=== PATIENT | female | born 1960 | race Caucasian/White ===

== ENCOUNTER 2021-05-08 00:37 | Emergency (ER) | payer BC ==
[~2021-05-08] VITALS: Ht 152.4 cm; Wt 64.9 kg
[2021-05-08] MEDS ORDERED: SODIUM CHLORIDE 0.9% 1,000 ML IV ONE (01:15)
[2021-05-08] MEDS ORDERED: KETOROLAC 30MG/ML VIAL IV STA (01:15)
[2021-05-08] MEDS ORDERED: ONDANSETRON HCL 4MG/2ML INJ IV STA (01:15)
[2021-05-08 01:41] LABS: CLARITY URINE CLOUDY (CLEAR); COLOR URINE YELLOW (YELLOW); KETONES URINE NEGATIVE (NEGATIVE); LEUKOCYTE ESTERASE URINE TRACE (NEGATIVE); NITRITE URINE NEGATIVE (NEGATIVE); OCCULT BLOOD URINE 2+ (NEGATIVE); PROTEIN URINE 1+ (NEGATIVE); SPECIFIC GRAVITY URINE 1.029 (1.005-1.030); UROBILINOGEN URINE 0.2 E.U./dL (0.2-1.0)
[2021-05-08 01:43] LABS: BASOPHILS % 0.1 % (0.0-2.0); EOSINOPHILS % 0.3 % (0.0-5.0); HEMATOCRIT. 39.3 % (36.0-48.0); HEMOGLOBIN. 12.7 g/dL (12.0-16.0); LYMPHOCYTES % 8.3 % (20.0-50.0); MEAN CORPUSCULAR HEMOGLOBIN 29.1 pg (28.0-32.0); MEAN CORPUSCULAR VOLUME 90.1 fL (81.0-99.0); MEAN PLATELET VOLUME 8.7 fl (7.4-10.4); MONOCYTES % 6.6 % (2.0-8.0); NEUTROPHILS % 84.7 % (40.0-76.0); PLATELET 299 x1000/uL (130-400); RED BLOOD CELL COUNT 4.36 mill/uL (4.2-5.4); RED CELL DISTRIBUTION WIDTH 13.4 % (11.6-14.6)
[2021-05-08 01:45] LABS: CHLORIDE 107 mEq/L (98-107)
[2021-05-08] MEDS ORDERED: CIPR-263 MT (03:13)
[2021-05-08] MEDS ORDERED: CEFTRIAXONE 1 G PREMIX 50 ML IV ONE (03:15)
[2021-05-08 03:38] VITALS: BP 135/80
== END 2021-05-08 03:56 | disposition home or self-care (01) ==
LOC: ER 00:37
DX: R10.9 Unspecified abdominal pain (principal)
CPT/HCPCS: 36415; 80053; 81003; 83690; 85025; 96361; 96365; 96375; 99284; J1885; J2405; J7030